=== PATIENT | female | born 1990 | race African-American/Black ===

== ENCOUNTER 2019-03-26 10:27 | Emergency (ER) | payer MEDICAID ==
[~2019-03-26] VITALS: Ht 167.6 cm; Wt 117.9 kg
--- NOTE | 2019-03-26 10:29 | NUR ---
PT AMBULATED TO ER BED 07
[2019-03-26 10:34] VITALS: BP 111/53
[2019-03-26] MEDS ORDERED: ALBUTEROL SULFATE/IPRATROPIU 3 ML SOL IH ONE (10:35)
--- NOTE | 2019-03-26 10:48 | NUR ---
RT at bedside for respiratory intervention. Patient tolerating well.
--- NOTE | 2019-03-26 10:50 | NUR ---
RT AT BEDSIDE ADMINISTERING ORDERED TREATMENT.
--- NOTE | 2019-03-26 10:53 | NUR ---
28 Y/O F C/O DIFFICULTY TAKING A DEEP BREATH X 2 DAYS. PT STATES SHE IS OUT OF HER ASTHMA MEDICATION/INHALER. PT DENIES PAIN, N/V. PT LUNG SOUNDS CLEAR, OXYGEN LEVEL 100% ROOM AIR. PT POSITIONED HIGH FOWLWERS, SIDE RAIL X [address] NATE
--- NOTE | 2019-03-26 10:59 | NUR ---
PT STATES SHE FEELS BETTER AFTER BREATHING TREATMENT, ABLE TO INHALE/EXHALE WITH DEEP BREATHS. LUNG SOUNDS CLEAR THROUGHOUT.
[2019-03-26 11:48] VITALS: BP 111/53
--- NOTE | 2019-03-26 11:48 | NUR ---
Patient discharged with v/s stable. Written and verbal after care instructions given and explained. Patient alert, oriented and verbalized understanding of instructions. Ambulatory with steady gait. All questions addressed prior to discharge. ID band removed. Patient advised to follow up with PMD. Rx of PREDNISONE, ALBUTEROL given. Patient educated on indication of medication including possible reaction and side effects. Opportunity to ask questions provided and answered.
== END 2019-03-26 11:48 | disposition home or self-care (01) ==
LOC: MED 10:27
DX: J45.909 Unspecified asthma, uncomplicated (principal); Z71.6 Tobacco abuse counseling; F12.10 Cannabis abuse, uncomplicated
CPT/HCPCS: 94640; 99283; J7620